=== PATIENT | female | born 2000 | race Caucasian/White ===

== ENCOUNTER 2021-05-30 08:19 | Emergency (ER) | payer BC, MEDICAID ==
--- NOTE | 2021-05-30 10:04 | EDM.PDOC ---
ED HPI GENERAL MEDICAL PROBLEM - General Chief Complaint: General Stated Complaint: ABDOMINAL PAIN/mid-gastric pain Time Seen by Provider: 05/30/21 08:30 Source of Information: Reports: Patient History Limitations: Reports: No Limitations - History of Present Illness INITIAL COMMENTS - FREE TEXT/NARRATIVE: 20-year-old female presents to the emergency room with complaints of upper abdominal mid gastric pain. Her symptoms started approximately 2 AM. She has had two episodes of emesis. She reports the pain is worse when she lies down. She reports the pain is a constant 5 out of 10 and has sharp intermittent pain radiating to a seven or eight. She reports a history of reflux she was on omeprazole in the past but was only on this for 1month by her primary care. She did take 800 of ibuprofen last night without relief. She denies any lower abdominal or lower quadrant pain she denies any dysuria. She denies any diarrhea or constipation. Her last menstrual period was 7 days ago. She reports no concerns for . She is sexually active on control. Onset: Today Onset Date: 05/30/21 Onset Time: 02:00 Duration: Hour(s):, Constant (Constant burning type pain rating a 5 out of 10), Intermittent (Remittent sharp pains radiating up to a 7 or 8 out of 10) Location: Reports: Abdomen Quality: Reports: Ache, Burning Improves with: Reports: None Worsens with: Reports: Other (Pain worsens with lying flat) Associated Symptoms: Reports: No Other Symptoms Treatments CERTIFIED COURT INTERPRETER: Reports: NSAIDS Epigastric Pain Score (Numeric/FACES): 8 - Related Data Allergies Allergy/AdvReac Type Severity Reaction Status Date / Time kiwi Allergy Itching Verified 05/30/21 08:39 Penicillins Allergy Rash Verified 05/30/21 08:39 Home Meds: Home Meds Vylibra 1 tab PO DAILY 05/30/21 [History] Social & Family History - Tobacco Use Tobacco Use Status *Q: Never Tobacco User - Caffeine Use Caffeine Use: Reports: Coffee, Energy Drinks, Soda, Tea - Recreational Drug Use Recreational Drug Use: No ED ROS GENERAL - Review of Systems Review Of Systems: See Below Constitutional: Reports: No Symptoms HEENT: Reports: No Symptoms Respiratory: Reports: No Symptoms Cardiovascular: Reports: No Symptoms Endocrine: Reports: No Symptoms GI/Abdominal: Reports: Abdominal Pain, Vomiting (X2). Denies: Constipation, Diarrhea, Distension : Denies: Dysuria, Frequency, Hematuria Musculoskeletal: Reports: No Symptoms Skin: Reports: No Symptoms Neurological: Reports: No Symptoms Psychiatric: Reports: No Symptoms Hematologic/Lymphatic: Reports: No Symptoms Immunologic: Reports: No Symptoms ED EXAM, GENERAL - Physical Exam Exam: See Below Exam Limited By: No Limitations General Appearance: Alert, No Apparent Distress, Obese (Morbid) Eye Exam: Bilateral Eye: EOMI Ears: Normal External Exam, Hearing Grossly Normal Nose: Normal Inspection Throat/Mouth: Normal Inspection, Normal Lips, Normal Oropharynx, Normal Voice, No Airway Compromise Head: Atraumatic, Normocephalic Neck: Normal Inspection, Supple, Non-Tender, Full Range of Motion Respiratory/Chest: No Respiratory Distress, Lungs Clear, Normal Breath Sounds, No Accessory Muscle Use, Chest Non-Tender Cardiovascular: Normal Peripheral Pulses, Regular Rate, Rhythm, No Murmur Peripheral Pulses: 2+: Carotid (R), Radial (L), Radial (R) GI/Abdominal: Normal Bowel Sounds, Soft, No Organomegaly, No Distention, No Abnormal Bruit, No Mass, Tender (Epigastric tenderness). No: Guarding, Rigid Back Exam: Normal Inspection, Full Range of Motion Extremities: Normal Inspection, Normal Range of Motion Neurological: Alert, Oriented, CN II-XII Intact, No Motor/Sensory Deficits Psychiatric: Normal Affect, Normal Mood Skin Exam: Warm, Dry, Intact, Normal Color, No Rash Lymphatic: No Adenopathy Course - Vital Signs Last Recorded V/S: Last Vital Signs Temp 96.9 F 05/30/21 08:32 Pulse 72 05/30/21 08:32 Resp 20 05/30/21 08:32 BP Pulse Ox 96 05/30/21 08:32 - Orders/Labs/Meds Orders: Active Orders 24 hr Category Date Time Status Sodium Chloride 0.9% [Normal Saline] 50 ml Med 05/30/21 10:00 Active IV ASDIRECTED Medication Orders Sodium Chloride (Normal Saline) 50 mls @ 200 mls/hr IV ASDIRECTED MEENA Last Admin: 05/30/21 10:14 Dose: 200 mls/hr Documented by: [place] Labs: Laboratory Tests 05/30/21 05/30/21 05/30/21 Range/Units 09:35 09:35 09:50 WBC 9.47 (5.00-10.00) 10^3/uL RBC 4.68 (3.80-5.50) 10^6/uL Hgb 12.8 (12.0-16.0) g/dL Hct 39.9 (37.0-47.0) % MCV 85.3 (82.0-92.0) fL MCH 27.4 (27.0-31.0) pg MCHC 32.1 (32.0-36.0) g/dL RDW 12.8 (11.5-14.5) % Plt Count 328 (150-400) 10^3/uL MPV 9.6 (7.4-10.4) fL Immature Gran % (Auto) 0.2 (0.0-5.0) % Neut % (Auto) 70.5 H (50.0-70.0) % Lymph % (Auto) 23.1 (20.0-40.0) % Price % (Auto) 4.1 (2.0-8.0) % Eos % (Auto) 1.1 (1.0-3.0) % Baso % (Auto) 1.0 (0.0-1.0) % Neut # (Auto) 6.68 (2.50-7.00) 10^3/uL Lymph # (Auto) 2.19 (1.00-4.00) 10^3/uL Price # (Auto) 0.39 (0.10-0.80) 10^3/uL Eos # (Auto) 0.10 (0.10-0.30) 10^3/uL Baso # (Auto) 0.09 (0.00-0.10) 10^3/uL Immature Gran # (Auto) 0.02 (0.00-0.50) 10^3/uL Sodium 140 (136-145) mmol/L Potassium 4.5 (3.5-5.1) mmol/L Chloride 107 (98-107) mmol/L Carbon Dioxide 22.9 (21.0-32.0) mmol/L Anion Gap 14.6 (5-15) mmol/L BUN 13 (7-18) mg/dL Creatinine 0.77 (0.51-1.17) mg/dL Est Cr Clr Drug Dosing 142.95 mL/min Estimated GFR (MDRD) > 60 mL/min Glucose 121 (70-140) mg/dL Calcium 9.2 (8.7-10.3) mg/dL Total Bilirubin 0.4 (0.2-1.0) mg/dL AST 12 L (15-37) U/L ALT 22 (14-63) U/L Alkaline Phosphatase 89 (46-116) U/L Total Protein 6.7 (6.4-8.2) g/dL Albumin 3.44 (3.40-5.00) g/dL Specimen Type Urine Color (YELLOW) Urine Appearance (CLEAR) Urine pH (5.0-9.0) Ur Specific [place] (1.005-1.030) Urine Protein (NEGATIVE) mg/dL Urine Glucose (UA) (NEGATIVE) mg/dL Urine Ketones (NEGATIVE) mg/dL Urine Occult Blood (NEGATIVE) Urine Nitrite (NEGATIVE) Urine Bilirubin (NEGATIVE) Urine Urobilinogen (0.2-1.0) E.U./dL Ur Leukocyte Esterase (NEGATIVE) Urine RBC (0-5) /HPF Urine WBC (0-5) /HPF Ur Epithelial Cells /LPF Urine Bacteria (NONE TO FEW) /HPF Urine HCG, Qual Negative (NEGATIVE) 05/30/21 Range/Units 09:50 WBC (5.00-10.00) 10^3/uL RBC (3.80-5.50) 10^6/uL Hgb (12.0-16.0) g/dL Hct (37.0-47.0) % MCV (82.0-92.0) fL MCH (27.0-31.0) pg MCHC (32.0-36.0) g/dL RDW (11.5-14.5) % Plt Count (150-400) 10^3/uL MPV (7.4-10.4) fL Immature Gran % (Auto) (0.0-5.0) % Neut % (Auto) (50.0-70.0) % Lymph % (Auto) (20.0-40.0) % Price % (Auto) (2.0-8.0) % Eos % (Auto) (1.0-3.0) % Baso % (Auto) (0.0-1.0) % Neut # (Auto) (2.50-7.00) 10^3/uL Lymph # (Auto) (1.00-4.00) 10^3/uL Price # (Auto) (0.10-0.80) 10^3/uL Eos # (Auto) (0.10-0.30) 10^3/uL Baso # (Auto) (0.00-0.10) 10^3/uL Immature Gran # (Auto) (0.00-0.50) 10^3/uL Sodium (136-145) mmol/L Potassium (3.5-5.1) mmol/L Chloride (98-107) mmol/L Carbon Dioxide (21.0-32.0) mmol/L Anion Gap (5-15) mmol/L BUN (7-18) mg/dL Creatinine (0.51-1.17) mg/dL Est Cr Clr Drug Dosing mL/min Estimated GFR (MDRD) mL/min Glucose (70-140) mg/dL Calcium (8.7-10.3) mg/dL Total Bilirubin (0.2-1.0) mg/dL AST (15-37) U/L ALT (14-63) U/L Alkaline Phosphatase (46-116) U/L Total Protein (6.4-8.2) g/dL Albumin (3.40-5.00) g/dL Specimen Type Urincc Urine Color Yellow (YELLOW) Urine Appearance Clear (CLEAR) Urine pH 7.5 (5.0-9.0) Ur Specific [place] 1.025 (1.005-1.030) Urine Protein Negative (NEGATIVE) mg/dL Urine Glucose (UA) Negative (NEGATIVE) mg/dL Urine Ketones Negative (NEGATIVE) mg/dL Urine Occult Blood Negative (NEGATIVE) Urine Nitrite Negative (NEGATIVE) Urine Bilirubin Negative (NEGATIVE) Urine Urobilinogen 0.2 (0.2-1.0) E.U./dL Ur Leukocyte Esterase Trace H (NEGATIVE) Urine RBC Not seen (0-5) /HPF Urine WBC 5-10 H (0-5) /HPF Ur Epithelial Cells Many H /LPF Urine Bacteria Few (NONE TO FEW) /HPF Urine HCG, Qual (NEGATIVE) Meds: Medications Generic Name Dose Route Start Last Admin Trade Name Freq PRN Reason Stop Dose Admin Sodium Chloride 50 mls @ 200 mls/hr 10/24/21 10:00 05/30/21 10:14 Normal Saline IV 200 mls/hr ASDIRECTED MEENA Administration Discontinued Medications Generic Name Dose Route Start Last Admin Trade Name Yolie PRN Reason Stop Dose Admin Iopamidol 100 ml 05/30/21 09:53 05/30/21 10:14 Iopamidol 755 Mg/Ml 100 Ml Bottle IV 05/30/21 09:54 100 ml ONETIME ONE Administration Pantoprazole Sodium 40 mg 05/30/21 09:26 05/30/21 10:11 Pantoprazole 40 Mg Vial IVPUSH 05/30/21 09:27 40 mg ONETIME ONE Administration - Radiology Interpretation Free Text/Narrative:: CT scan abdomen pelvis with IV contrast. Findings: Lung bases are clear. Liver, spleen, gallbladder, pancreas, adrenal glands, and kidneys are unremarkable. No bowel obstruction or inflammation. Appendix is visualized and appears to be normal. Moderate amount of retained stool within the colon. No lymphadenopathy, or pneumoperitoneum. Trace of free fluid within the pelvis likely physiologic in nature. Scattered changes of spondylosis the spine. No fracture or osseous lesion. Impression: No acute CT findings within the abdomen or pelvis to explain the patient's symptoms. - Re-Assessments/Exams Free Text/Narrative Re-Assessment/Exam: 05/30/21 10:52 She reports feeling much better with the IV Protonix. Departure - Departure Time of Disposition: 10:48 Disposition: Home, Self-Care 01 Condition: Good Clinical Impression: Reflux gastritis - Discharge Information Referrals: Tracy Hernandez DO [Primary Care Provider] - Forms: ED Department Discharge Sepsis Event Note (ED) - Evaluation Sepsis Screening Result: No Definite Risk - Focused Exam Vital Signs: Vital Signs Temp Pulse Resp Pulse Ox 05/30/21 08:32 96.9 F 72 20 96 - My Orders Last 24 Hours: My Active Orders 05/30/21 10:00 Sodium Chloride 0.9% [Normal Saline] 50 ml IV ASDIRECTED - Assessment/Plan Last 24 Hours: My Active Orders 05/30/21 10:00 Sodium Chloride 0.9% [Normal Saline] 50 ml IV ASDIRECTED Assessment:: 1. Margarita esophageal reflux disease Plan: 1. Patient is feeling much better with the IV Protonix. Working to start her on omeprazole 20 mg 1 p.o. daily. 2. Recommend follow-up with your primary care for management of your reflux. Patient may need an upper GI study..
[2021-05-30 10:07] LABS: ANION GAP 14.6 mmol/L (5-15); CHLORIDE,CL 107 mmol/L (98-107); SODIUM,NA 140 mmol/L (136-145)
[2021-05-30] MEDS: Pantoprazole 40 MG Vial IVPUSH ONE (10:11)
[2021-05-30] MEDS: Sodium Chloride 0.9% 50 ML IV SCH (10:14)
[2021-05-30] MEDS: Iopamidol 755 Mg/ML 100 ML Bottle IV ONE (10:14)
--- NOTE | 2021-05-30 10:37 | CT ---
[id number] CT/CT Abdomen Pelvis W IV EXAM: CT Abdomen Pelvis W IV CLINICAL DATA: ABDOMEN PAIN. COMPARISON STUDY: None. FINDINGS: Lung bases are clear. Liver, spleen, gallbladder, pancreas, adrenal glands, and kidneys are unremarkable. No bowel obstruction or inflammation. The appendix is visualized and appears normal. Moderate amount of retained stool within the colon. No lymphadenopathy, or pneumoperitoneum. Trace free fluid within the pelvis likely physiologic in nature. Scattered changes of spondylosis the spine. No fracture or osseous lesion. IMPRESSION: 1. No acute CT findings within the abdomen or pelvis to explain the patient's symptoms. Krzysztof Varner DO 05/30/21 1036 Thank you for allowing us to participate in the care of your patient.
== END 2021-05-30 11:00 | disposition home or self-care (01) ==
LOC: KA.ED 08:19
DX: K21.9 Gastro-esophageal reflux disease without esophagitis (principal); E66.01 Morbid (severe) obesity due to excess calories; Z68.41 Body mass index [BMI] 40.0-44.9, adult; Z88.0 Allergy status to penicillin; Z91.018 Allergy to other foods
CPT/HCPCS: 36415; 74177; 80053; 81001; 81025; 85025; 96374; 99283; 99284-25; C9113; Q9967

== ENCOUNTER 2022-01-12 17:54 | Emergency (ER) | payer SELFPAY ==
[2022-01-12] MEDS ORDERED: Sodium Chloride 0.9% 10 ML Syringe FLUSH PRN (18:12)
[2022-01-12] MEDS ORDERED: Sodium Chloride 0.9% 1,000 ML ONE (18:40)
[2022-01-12] MEDS ORDERED: Pantoprazole 40 MG Vial IVPUSH ONE (18:42)
[2022-01-12] MEDS ORDERED: Sodium Chloride 0.9% 1,000 ML IV ONE (18:42)
[2022-01-12 18:56] LABS: ANION GAP 12.2 mmol/L (5-15); CHLORIDE,CL 104 mmol/L (98-107); SODIUM,NA 138 mmol/L (136-145)
[2022-01-12 18:58] LABS: ESTIMATED GFR > 60 mL/min
[2022-01-12] MEDS ORDERED: Ondansetron 4 MG/2 ML SDV IVPUSH ONE (19:21)
[2022-01-12] MEDS ORDERED: Ondansetron 4 MG/2 ML SDV ONE (19:22)
[2022-01-12] MEDS ORDERED: Ketorolac 30 MG/ML SDV IVPUSH ONE (19:48)
[2022-01-12] MEDS ORDERED: HYDROmorphone 1 MG/ML Syringe IVPUSH ONE (20:11)
[2022-01-12] MEDS ORDERED: Iopamidol 755 Mg/ML 75 ML Bottle IVPUSH ONE (21:09)
[2022-01-12] MEDS ORDERED: Sodium Chloride 0.9% 50 ML IV SCH (21:15)
[2022-01-12] MEDS ORDERED: Acetaminophen/HYDROcodone 325-10 MG Tab PO ONE (22:06)
== END 2022-01-12 22:28 | disposition home or self-care (01) ==
LOC: KA.ED 17:54
DX: R10.11 Right upper quadrant pain (principal); Z88.0 Allergy status to penicillin; Z91.018 Allergy to other foods
CPT/HCPCS: 36415; 74177; 80053; 81001; 81025; 83690; 85025; 86140; 96361; 96374; 96375; 99284; 99284-25; A9270-GY; C9113; J1170; J1885; J2405; J3490; J7030; Q9967

== ENCOUNTER 2022-03-07 07:08 | Day surgery (SDC) | payer BC ==
[2022-03-07] MEDS ORDERED: Midazolam 1 MG/ML 2 ML SDV IV ONE (07:09)
[2022-03-07] MEDS ORDERED: Glycopyrrolate 0.2 MG/ML SDV IM ONE (07:09)
[2022-03-07] MEDS: Lactated Ringers 1,000 ML IV SCH (07:37)
[2022-03-07] MEDS: Sodium Chloride 0.9% 10 ML Syringe FLUSH PRN (07:38)
[2022-03-07] MEDS ORDERED: Propofol 200 MG/20 ML SDV ONE (07:54)
[2022-03-07] MEDS ORDERED: Ketamine 200 MG/20 ML MDV ONE (07:54)
[2022-03-07] MEDS ORDERED: Glycopyrrolate 0.2 MG/ML SDV ONE (07:54)
[2022-03-07] MEDS ORDERED: Midazolam 1 MG/ML 2 ML SDV ONE ×2 (07:54→08:26)
[2022-03-07 10:08] VITALS: BP 116/71; PULSE 100
== END 2022-03-07 10:03 | disposition home or self-care (01) ==
LOC: KA.SDS 07:08
PROVIDERS: ATTEND Family Medicine
DX: K29.50 Unspecified chronic gastritis without bleeding (principal); K31.819 Angiodysplasia of stomach and duodenum without bleeding; K21.9 Gastro-esophageal reflux disease without esophagitis; E66.01 Morbid (severe) obesity due to excess calories; Z79.899 Other long term (current) drug therapy; Z88.0 Allergy status to penicillin; Z91.018 Allergy to other foods; Z68.43 Body mass index [BMI] 50.0-59.9, adult
CPT/HCPCS: 00731; 36415; 84703; J2250; J2704; J3490; J7120